=== PATIENT | male | born 1995 | race Native Hawaiian/Other Pacific Islander ===

== ENCOUNTER 2019-08-03 11:51 | Outpatient (CLI) | payer BC | END 2019-08-03 19:42 | disposition home or self-care (01) | LOC: RAD 11:51 | DX: M79.89 Other specified soft tissue disorders (principal) ==

== ENCOUNTER 2020-02-21 14:54 | Outpatient (CLI) | payer BC | END 2020-02-21 21:54 | disposition home or self-care (01) | LOC: RAD 14:54 | DX: M25.561 Pain in right knee (principal) ==